=== PATIENT | female | born 1985 | race Caucasian/White ===

== ENCOUNTER → 2018-04-10 | Outpatient (CLI) | payer BC ==
--- NOTE | 2018-04-10 11:31 | RADIOLOGY REPORT (SQ) ---
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 CONTRAST TYPE AND DOSE: contrast/concentration: Isovue 370.00 mg/ml; Total Contrast Delivered: 65.0 ml; Total Saline Delivered: 65.0 ml RENAL FUNCTION: None required. The patient is less than 50 years old. TECHNIQUE: CT scan of the chest performed using helical scanning technique with dynamic intravenous contrast injection. Images reviewed with lung, soft tissue and bone windows. Reconstructed coronal a nd sagittal MPR images reviewed. All images stored on PACS. CT scan of the abdomen and pelvis performed with intravenous and with oral contrastusing helical scan morgan technique with dynamic intravenous contrast injection. Images reviewed with lung, soft tissue a nd bone windows. Reconstructed coronal and sagittal MPR images reviewed. Delayed images for evaluat ion of the urinary system also acquired and evaluated. All images stored on PACS. All CT scanners at this facility use dose modulation, iterative reconstruction, and/or weight based d osing when appropriate to reduce radiation dose to as low as reasonably achievable (ALARA). [facility]: Dose Right [facility]: CareDose [facility]: Dose Right [facility]: Teradose 4D [facility]: [employer] RADIATION DOSE: CT Rad equipment meets quality standard of care and radiation dose reduction techniq ues were employed. CTDIvol: 4.4 - 4.5 mGy. DLP: 639 mGy-cm. . LIMITATIONS: None. FINDINGS: CHEST: LUNGS AND PLEURA: No opacities, nodules, masses. No pneumothorax. No effusions. HILAR AND MEDIASTINAL STRUCTURES: No identified masses or abnormal nodes. HEART AND VASCULAR STRUCTURES: No aneurysm or dissection. No central pulmonary emboli. No pericardi al effusion. HARDWARE: None. THYROID AND OTHER SOFT TISSUES: No masses. No adenopathy. BONES: No significant finding. OTHER: Bilateral subpectoral breast implants are present ABDOMEN AND PELVIS: LIVER: Normal size. No masses. No dilated ducts. SPLEEN: Normal size. No focal lesions. PANCREAS: No masses. No significant calcifications. No adjacent inflammation or peripancreatic fluid collections. Pancreatic duct not dilated. GALLBLADDER: No identified stones by CT criteria. No inflammatory changes to suggest cholecystitis. ADRENAL GLANDS: No significant masses or asymmetry. RIGHT KIDNEY AND URETER: No solid masses. No significant calcification. No hydronephrosis or hydroure ter. LEFT KIDNEY AND URETER: No solid masses. No significant calcification. No hydronephrosis or hydrouret er. AORTA AND VESSELS: No aneurysm. No dissection. Renal arteries, SMA, celiac without stenosis. RETROPERITONEUM: No retroperitoneal adenopathy, hemorrhage or masses. BOWEL AND PERITONEAL CAVITY: Patient drank oral contrast. No CT evidence of bowel obstruction. No m asses or inflammatory changes. No free fluid or peritoneal masses. APPENDIX: Normal. ABDOMINAL WALL: No masses. No hernias. PELVIS: No mass or free fluid. Normal bladder. Normal size uterus and ovaries, IUD in the uterus. No pelvic adenopathy. BONES: No significant or acute findings. OTHER: No other significant finding. IMPRESSION: NORMAL CT OF THE CHEST WITH IV CONTRAST. NORMAL CT OF THE ABDOMEN AND PELVIS WITH ORAL AND INTRAVENOUS CONTRAST. TECHNICAL DOCUMENTATION: JOB ID: [id number] Quality ID # 436: Final reports with documentation of one or more dose reduction techniques (e.g., Au tomated exposure control, adjustment of the mA and/or kV according to patient size, use of iterative reconstruction technique) 2010 [employer]- All Rights Reserved Reading location - IP/workstation name: [email or web address]
== END ==
LOC: RAD 07:52
PROVIDERS: ATTEND Obstetrics & Gynecology Gynecologic Oncology
DX: C53.0 Malignant neoplasm of endocervix (principal)
CPT/HCPCS: 71260; 74177

== ENCOUNTER → 2018-04-21 | Outpatient (CLI) | payer BC ==
--- NOTE | 2018-04-22 07:57 | RADIOLOGY REPORT (SQ) ---
EXAM DESCRIPTION: PET CT SKULL/THIGH COMPLETED DATE/TIME: 04/21/2018 7:35 pm REASON FOR STUDY: C53.9 MALIGNANT NEOPLASM OF CERVIX UTERI, UNSPECIFIED C53.9 MALIGNANT NEOPLASM OF CERVIX UTERI, UNSPECIFIED COMPARISON: CT chest abdomen pelvis 04/10/2018 RADIONUCLIDE AND DOSE: 12.1 mCi F18 FDG The route of agent administration: Intravenous FASTING BLOOD SUGAR: 74 mg/dl CONTRAST TYPE AND DOSE: No CT contrast given. TECHNIQUE: Blood glucose level was verified. Above dose of FDG was injected intravenously. 2-D seg mented attenuation correction images were obtained from the base of the skull to the midthighs. Nonc ontrast CT images were obtained for attenuation correction and fusion with emission images. CT image s were performed without oral or intravenous contrast and are not sensitive for parenchymal lesions. A series of overlapping emission PET images were obtained. Images reviewed and manipulated at [facility] work station by the radiologist. Images stored on PACS. LIMITATIONS: None. FINDINGS: HEAD AND NECK: No areas of abnormal metabolic activity in the soft tissues of the head and neck. CHEST: No areas of abnormal metabolic activity in the chest. ABDOMEN AND PELVIS: Normal size uterus with IUD in the endometrial canal. Along the endocervical can al, marked by the adjacent tip of the IUD, there is a focus of increased metabolic activity with SUV 6.6. This likely represents the patient's known cervical adenocarcinoma. The left ovary is normal size 3.5 x 2.5 cm on axial image 211. However, along the lateral half of th e left ovary there is a 2 cm area of increased metabolic activity with SUV of 4.5. This is abnormal but nonspecific. PROXIMAL LOWER EXTREMITIES: No areas of abnormal metabolic activity in the soft tissues of the lower extremities. BONES: No abnormal metabolic activity in the visualized skeleton. ADDITIONAL CT FINDINGS: The IUD in the uterus in good positioning. Bilateral breast implants, subpec trey. OTHER: Liver background activity 2.1 SUV. Blood pool background activity 1.5 SUV IMPRESSION: Increased metabolic activity along the endocervical canal, this likely correlates with a denocarcinoma of the cervix Increased uptake, lateral half of the left ovary, abnormal but nonspecific. TECHNICAL DOCUMENTATION: JOB ID: [id number] [employer]- All Rights Reserved Reading location - IP/workstation name: [email or web address]
== END ==
LOC: RAD 16:52
PROVIDERS: ATTEND Obstetrics & Gynecology Gynecologic Oncology
DX: C53.9 Malignant neoplasm of cervix uteri, unspecified (principal)
CPT/HCPCS: 78815; A9552

== ENCOUNTER → 2018-09-01 | Outpatient (CLI) | payer BC | LOC: LAB 09:13 | PROVIDERS: ATTEND Physician Assistant | DX: L70.8 Other acne (principal); Z79.899 Other long term (current) drug therapy | CPT/HCPCS: 36415; 84132 ==

== ENCOUNTER → 2018-10-01 | Outpatient (CLI) | payer BC | LOC: LAB 15:38 | PROVIDERS: ATTEND Physician Assistant | DX: L70.8 Other acne (principal); Z79.899 Other long term (current) drug therapy | CPT/HCPCS: 36415; 84132 ==

== ENCOUNTER → 2018-10-12 | Outpatient (CLI) | payer BC ==
--- NOTE | 2018-10-12 13:28 | RADIOLOGY REPORT (SQ) ---
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 Images reviewed with lung, soft tissue and bone windows. Reconstructed coronal and sagittal MPR and MIP images reviewed. All images stored on PACS. All CT scanners at this facility use dose modulation, iterative reconstruction, and/or weight based d osing when appropriate to reduce radiation dose to as low as reasonably achievable (ALARA). [facility]: Dose Right [facility]: CareDose [facility]: Dose Right [facility]: Teradose 4D [facility]: [employer] CONTRAST TYPE AND DOSE: 67 mL Omnipaque 350- low osmolar. RENAL FUNCTION: None required. The patient is less than 50 years old. RADIATION DOSE: CT Rad equipment meets quality standard of care and radiation dose reduction techniq ues were employed. CTDIvol: 4.4 - 4.5 mGy. DLP: 616 mGy-cm. . LIMITATIONS: None. FINDINGS: LUNGS AND PLEURA: No opacities, nodules, masses. No pneumothorax. No effusions. HILAR AND MEDIASTINAL STRUCTURES: No identified masses or abnormal nodes. HEART AND VASCULAR STRUCTURES: No aneurysm or dissection. No central pulmonary emboli. No pericardi al effusion. HARDWARE: None in the chest. UPPER ABDOMEN: See separate report of the CT of the abdomen. THYROID AND OTHER SOFT TISSUES: No masses. No adenopathy. BONES: No significant finding. OTHER: No other significant finding. IMPRESSION: NORMAL CT OF THE CHEST WITH IV CONTRAST. TECHNICAL DOCUMENTATION: JOB ID: [id number] Quality ID # 436: Final reports with documentation of one or more dose reduction techniques (e.g., Au tomated exposure control, adjustment of the mA and/or kV according to patient size, use of iterative reconstruction technique) 2010 [employer]- All Rights Reserved Reading location - IP/workstation name: [email or web address]
--- NOTE | 2018-10-12 13:34 | RADIOLOGY REPORT (SQ) ---
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 TECHNIQUE: CT scan of the abdomen and pelvis performed using helical scanning technique with dynamic intravenous contrast injection. Oral contrast. Images reviewed with lung, soft tissue, and bone win dows. Reconstructed coronal and sagittal MPR images reviewed. Delayed images for evaluation of the ur inary system also acquired. All images stored on PACS. All CT scanners at this facility use dose modulation, iterative reconstruction, and/or weight based d osing when appropriate to reduce radiation dose to as low as reasonably achievable (ALARA). [facility]: Dose Right [facility]: CareDose [facility]: Dose Right [facility]: Teradose 4D [facility]: [employer] CONTRAST TYPE AND DOSE: contrast/concentration: Isovue 350.00 mg/ml; Total Contrast Delivered: 67.0 ml; Total Saline Delivered: 65.0 ml RENAL FUNCTION: None required. The patient is less than 50 years old. RADIATION DOSE: . LIMITATIONS: None. FINDINGS: LOWER CHEST: See separate report of the CT of the chest. LIVER: Normal size. No masses. No dilated ducts. SPLEEN: Normal size. No focal lesions. PANCREAS: No masses. No significant calcifications. No adjacent inflammation or peripancreatic fluid collections. Pancreatic duct not dilated. GALLBLADDER: No identified stones by CT criteria. No inflammatory changes to suggest cholecystitis. ADRENAL GLANDS: No significant masses or asymmetry. RIGHT KIDNEY AND URETER: No solid masses. No significant calcifications. No hydronephrosis or hyd roureter. LEFT KIDNEY AND URETER: No solid masses. No significant calcifications. No hydronephrosis or hydr oureter. AORTA AND VESSELS: No aneurysm. No dissection. Renal arteries, SMA, celiac without stenosis. RETROPERITONEUM: No retroperitoneal adenopathy, hemorrhage or masses. BOWEL AND PERITONEAL CAVITY: No masses or inflammatory changes. No free fluid or peritoneal masses. APPENDIX: Normal. PELVIS: Uterus is absent. Urinary bladder is normal. No web normal pelvic masses or fluid collectio ns. ABDOMINAL WALL: No masses. No hernias. BONES: No significant or acute findings. OTHER: No other significant finding. IMPRESSION: NO SIGNIFICANT OR ACUTE FINDING IN THE ABDOMEN OR PELVIS ON CT SCAN WITH IV CONTRAST. TECHNICAL DOCUMENTATION: JOB ID: [id number] Quality ID # 436: Final reports with documentation of one or more dose reduction techniques (e.g., Au tomated exposure control, adjustment of the mA and/or kV according to patient size, use of iterative reconstruction technique) 2010 [employer]- All Rights Reserved Reading location - IP/workstation name: [email or web address]
== END ==
LOC: RAD 13:36
PROVIDERS: ATTEND Obstetrics & Gynecology Gynecologic Oncology
DX: C53.0 Malignant neoplasm of endocervix (principal)
CPT/HCPCS: 71260; 74177

== ENCOUNTER 2019-08-23 10:15 | Day surgery (SDC) | payer BC ==
[~2019-08-23 10:15] MED LIST: CEFAZOLIN SODIUM 2 GM in DEXTROSE 5%-WATER 100 ML IV SCH
[2019-08-23] MEDS ORDERED: SCOPOLAMINE HYDROBROMIDE 1.5 MG PATCH.TD72 ONE (10:47)
[2019-08-23] MEDS ORDERED: PROMETHAZINE HCL INJ 25 MG/1 ML VIAL ONE (10:47)
[2019-08-23] MEDS ORDERED: FENTANYL CITRATE INJ/PF 100 MCG/2 ML AMPUL ONE (10:47)
[2019-08-23] MEDS ORDERED: PROPOFOL INJ 200 MG/20 ML VIAL IV ONE (10:47)
[2019-08-23] MEDS ORDERED: HYDROMORPHONE HCL INJ/PF 2 MG/ML AMPULE ONE (10:47)
[2019-08-23] MEDS ORDERED: MIDAZOLAM 2 MG/2 ML INJ ONE (10:47)
[2019-08-23] MEDS ORDERED: ACETAMINOPHEN 1,000 MG/100 ML RTUPB IV ONE (10:56)
[2019-08-23] MEDS ORDERED: MINERAL OIL (STERILE) 10 ML VIAL ONE (11:11)
[2019-08-23] MEDS ORDERED: BALANCED SALT IRRIG SOLN COMB2 15 ML BOTTLE ONE (11:11)
[2019-08-23] MEDS ORDERED: OXYMETAZOLINE HCL 0.05% NASAL SPRAY 15 ML BOTTLE ONE (11:12)
[2019-08-23] MEDS ORDERED: TOBRAMYCIN SULFATE/DEXAMETH OPH OINTMENT 3.5 GM ONE (11:12)
[2019-08-23] MEDS ORDERED: BUPIVACAINE HCL 0.5%/EPI 1:200000 INJ 1.8 ML CARTRIDGE ONE (11:12)
[2019-08-23] MEDS ORDERED: DEXAMETHASONE SOD PHOSPHATE INJ 4 MG/1 ML VIAL ONE ×2 (11:35→15:04)
[2019-08-23] MEDS ORDERED: BACITRACIN ZINC OINTMENT 15 GM ONE (12:06)
[2019-08-23] MEDS ORDERED: ONDANSETRON HCL INJ/PF 4 MG/2 ML SDV ONE ×2 (12:14→15:04)
[2019-08-23] MEDS ORDERED: LIDOCAINE 1%/EPINEPHRINE INJ 20 ML VIAL ONE (12:45)
[2019-08-23] MEDS ORDERED: MORPHINE SULFATE 10 MG/ML INJ IV PRN (13:28)
[2019-08-23] MEDS ORDERED: MEPERIDINE HCL/PF INJ 25 MG/1 ML DISP.SYRIN IV PRN (13:28)
[2019-08-23] MEDS ORDERED: OXYCODONE-ACETAMINOPHEN 5-325 MG TABLET PO PRN ×2 (13:28)
[2019-08-23] MEDS ORDERED: PROMETHAZINE HCL INJ 25 MG/1 ML VIAL IV PRN (13:28)
[2019-08-23] MEDS ORDERED: ONDANSETRON HCL INJ/PF 4 MG/2 ML SDV IV PRN (13:28)
[2019-08-23] MEDS ORDERED: DIPHENHYDRAMINE HCL 50 MG/ML VIAL IV PRN (13:28)
[2019-08-23] MEDS ORDERED: FENTANYL CITRATE INJ/PF 100 MCG/2 ML AMPUL IV PRN ×3 (13:28)
[2019-08-23] MEDS ORDERED: ROCURONIUM BROMIDE INJ 50 MG/5 ML VIAL IV ONE (15:04)
[2019-08-23] MEDS ORDERED: CEFAZOLIN INJ 1 GM VIAL ONE (16:38)
[2019-08-23 21:01] VITALS: BP 112/78
--- NOTE | 2019-09-01 06:58 | Operative Report ---
Operative Report-[facility] Operative Report: Date of surgery: August 23, 2019 PREOPERATIVE DIAGNOSES: 1. Nasal Deformities, Acquired 2. Chronic Nasal Dyspnea 3. Nasal septal deviation, Acquired 4. Bilateral inferior turbinate hypertrophy 5. History of nasal trauma POSTOPERATIVE DIAGNOSES: 1. Nasal Deformities, Acquired 2. Chronic Nasal Dyspnea 3. Nasal septal deviation, Acquired 4. Bilateral inferior turbinate hypertrophy 5. History of nasal trauma PROCEDURES: 1. External/open functional septorhinoplasty with upper and lower lateral c artilages addressed with multiple cartilage grafts utilized and nasal tip elevation/stabilization were all performed 2. Bilateral intramural inferior turbinate reductions using submucus resection techniques SURGEON: Dr. Kiana Noble Anesthesia Staff: LYLA Dash ANESTHESIA: General endotracheal tube anesthesia/GETA DRAINS: None SPONGE COUNT: Verified NEEDLE COUNT: Verified SPECIMEN/MATERIALS FORWARD TO THE LAB: None ESTIMATED BLOOD LOSS: 50 mL TOTAL IV FLUIDS: COMPLICATIONS: None FINDINGS: 1. Right nasal septal deviation involving bone and cartilage and a prominent maxillary crest spur/septal spur. 2. Nasal tip complex with bulbous appearance, dorsal irregularities, lateral nasal sidewall irregularities and overall instability. 3. Right upper lateral cartilage depression with external nasal deviation left. 4. Bilateral inferior turbinate hypertrophy. INDICATIONS: This is a 34-year-old white female patient who was seen and evaluated in the [place] [facility] office. The patient was referred for and they complained of a history of chronic nasal dyspnea over the years and history of nasal trauma. The patient has desired to undergo nasal surgery to improve functional nasal airflow and overall quality of life. The procedure, and all of the risks and complications were all discussed in detail with the patient regarding open/external septorhinoplasty and bilateral inferior turbinate reductions. She voiced an understanding, agreed to proceed, and consent was obtained. DESCRIPTION OF OPERATIVE PROCEDURE: The patient was taken to the main operating room and placed on the operating room table in the supine position. Appropriate monitors were placed. Using mask and IV access general anesthesia was induced. The patient was then transorally intubated without difficulty. The table was next positioned for nasal surgery. The patient underwent a nasal examination and local anesthetic with epinephrine was administered to establish a nasal block. The patient next had two Afrin soaked neuropatties placed into each nasal passage. The patient was then prepped and draped in the usual fashion for nasal surgery. The neuropatties were removed and the patient underwent a hemitransfixion incision. There was elevation of the mucoperichondrial and mucoperiosteal flaps without difficulty. The bony cartilaginous junction was identified and divided and the most deviated portions of the bony and cartilaginous septum were removed without difficulty. The maxillary crest/septal spur was removed with a Vgouge. Excessive cartilage around the maxillary crest and anterior nasal spine was trimmed. There was a greater then 1.5 X 1.5 cm cartilaginous L-Strut preserved. Attention was now turned to performing bilateral inferior turbinate reductions. The turbinate bipolar wand was used to make 2 - 3 intramural passes in each inferior turbinate. At this point the turbinate microdebrider system at a setting of 1500 RPM was used to perform bilateral inferior turbinate submucous resections. This was followed by use of the [place] elevator to outfracture each inferior turbinate. Excessive/redundant mucosa at the anterior portion of the inferior turbinates was next trimmed. Attention was now turned to performing the external/open rhinoplasty portion of the case. There was an inverted-V incision performed at the mid columellar aspect followed by bilateral marginal incisions with elevation of the skin soft tissue envelope without difficulty. There was a large right internal blacktop spreader graft placed deep to the right upper lateral cartilage via an open/external approach. This was also secured in place with 6-0 Prolene suture. At this point the lower lateral cartilages were addressed with bilateral cephalic trim was performed with preservation of an 8 mm strip on each side. There were tip defining points created with use of horizontal mattress 6-0 Prolene suture excessive cartilage was trimmed in various areas from the lower lateral car tilages to to include the excessive cartilage at the infra tip aspect on each side. At this point the lower lateral cartilages were reapproximated with 6-0 Prolene suture. The columellar aspect was also supported and stabilized with 6- 0 Prolene suture. There were cartilage grafts also placed at the lateral nasal sidewalls within the mid alar aspects on each side as well as right mid vault cartilage onlay grafts which were secured in place with through and through 6-0 Prolene suture. There was also excessive subcutaneous tissue that was delicately and lightly debulked followed by returning the skin soft tissue envelope over the nose. At this point the nose was thoroughly suctioned and irrigated with reasonable hemostasis being noted. All incisions were reapproximated with chromic suture. The skin margin of the inverted-V incision was reapproximated with 6-0 Prolene suture. At this point the nose was thoroughly suctioned. Once complete the septum was repositioned in the midline and the cartilage was secured in place at the anterior nasal spine with 5-0 clear nylon suture. Cartilage which had been excised during the case was placed back between the mucosal flaps. At this point the mucosal flaps were reapproximated and the hemitransfixion incision was closed using Chromic suture. At this point modified Merocel nasal packs were placed with bacitracin ointment 1 per nasal passage and they were secured at the caudal aspect with 4-0 Prolene suture. The nose was then cleaned and dried followed by Mastisol and Steri-Strips. Next, the patient was returned to the anesthesia staff and was allowed to emerge from general anesthesia. The patient was extubated in the main operating room and was then transported to the postanesthesia recovery unit in stable condition. There were no complications.
== END 2019-08-23 21:00 | disposition home or self-care (01) ==
LOC: OROUT 10:15
PROVIDERS: ATTEND Otolaryngology
DX: M95.0 Acquired deformity of nose (principal); J34.89 Other specified disorders of nose and nasal sinuses; J34.2 Deviated nasal septum; R06.09 Other forms of dyspnea; J34.3 Hypertrophy of nasal turbinates; R06.83 Snoring; Z79.899 Other long term (current) drug therapy; J01.91 Acute recurrent sinusitis, unspecified; R04.0 Epistaxis; J30.9 Allergic rhinitis, unspecified; L98.9 Disorder of the skin and subcutaneous tissue, unspecified; Z96.22 Myringotomy tube(s) status
CPT/HCPCS: 00160; 30420; 30140; J2250; J3490 ×7; J0690; J1100; J3010; J1170; J2550; J2405; J7060; J2704; J0131; 160

== ENCOUNTER → 2020-03-29 | Outpatient (CLI) | payer BC ==
--- NOTE | 2020-03-29 15:29 | RADIOLOGY REPORT (SQ) ---
EXAM DESCRIPTION: CT ABD/PELVIS WITH IV ORAL IMAGES COMPLETED DATE/TIME: 03/29/2020 1:05 pm REASON FOR STUDY: C53.9 MALIGNANT NEOPLASM OF CERVIX UTERI, UNSPECIFIED C53.9 MALIGNANT NEOPLASM OF CERVIX UTERI, UNSPECIFIED R10.9 UNSPECIFIED ABDOMINAL PAIN COMPARISON: CT abdomen and pelvis, 10/12/2018. PET CT, 04/11/2018. TECHNIQUE: CT scan of the abdomen and pelvis performed using helical scanning technique with dynamic intravenous contrast injection. No oral contrast. Images reviewed with lung, soft tissue, and bone windows. Reconstructed coronal and sagittal MPR images reviewed. Delayed images for evaluation of the urinary system also acquired. All images stored on PACS. All CT scanners at this facility use dose modulation, iterative reconstruction, and/or weight based d osing when appropriate to reduce radiation dose to as low as reasonably achievable (ALARA). [facility]: Dose Right [facility]: CareDose [facility]: Dose Right [facility]: Teradose 4D [facility]: [employer] CONTRAST TYPE AND DOSE: 67 mL Omnipaque 350- low osmolar. RENAL FUNCTION: None required. The patient is less than 50 years old. RADIATION DOSE: CT Rad equipment meets quality standard of care and radiation dose reduction techniq ues were employed. CTDIvol: 4.1 - 4.1 mGy. DLP: 424 mGy-cm.. LIMITATIONS: None. FINDINGS: LOWER CHEST: No significant findings. No nodules or infiltrates. LIVER: Normal size. No masses. No dilated ducts. SPLEEN: Normal size. No focal lesions. PANCREAS: No masses. No significant calcifications. No adjacent inflammation or peripancreatic fluid collections. Pancreatic duct not dilated. GALLBLADDER: No identified stones by CT criteria. No inflammatory changes to suggest cholecystitis. ADRENAL GLANDS: No significant masses or asymmetry. RIGHT KIDNEY AND URETER: No solid masses. No significant calcifications. No hydronephrosis or hyd roureter. LEFT KIDNEY AND URETER: No solid masses. No significant calcifications. No hydronephrosis or hydr oureter. AORTA AND VESSELS: No aneurysm. No dissection. Renal arteries, SMA, celiac without stenosis. RETROPERITONEUM: No retroperitoneal adenopathy, hemorrhage or masses. BOWEL AND PERITONEAL CAVITY: No masses or inflammatory changes. No free fluid or peritoneal masses. APPENDIX: Normal. PELVIS: Status post hysterectomy. Left adnexal seroma has decreased in size since previous. No adne xal mass. No free fluid in the pelvic cul-de-sac. Urinary bladder has normal contour. ABDOMINAL WALL: No masses. No hernias. BONES: Benign bone island left iliac bone. No suspicious bone lesions. OTHER: Bilateral breast implants. IMPRESSION: 1. No evidence of metastatic disease in the abdomen or pelvis. TECHNICAL DOCUMENTATION: JOB ID: [id number] Quality ID # 436: Final reports with documentation of one or more dose reduction techniques (e.g., Au tomated exposure control, adjustment of the mA and/or kV according to patient size, use of iterative reconstruction technique) 2010 [employer] All Rights Reserved Reading location - IP/workstation name: [email or web address]
== END ==
LOC: RAD 13:41
PROVIDERS: ATTEND Obstetrics & Gynecology Gynecologic Oncology
DX: C53.9 Malignant neoplasm of cervix uteri, unspecified (principal); R10.9 Unspecified abdominal pain
CPT/HCPCS: 74177